=== PATIENT | female | born 1990 | race American Indian/Alaskan Native ===

== ENCOUNTER 2021-01-05 08:12 | Emergency (ER) | payer SELFPAY ==
[2021-01-05 08:41] VITALS: BP 96/50
--- NOTE | 2021-01-05 13:50 | Emergency Department Report ---
ED Extremity Problem HPI - General Chief complaint: Extremity Injury, Lower Stated complaint: RT LEG SHARP PAIN PIN NEEDLES Time Seen by Provider: 01/05/21 13:46 Source: patient Mode of arrival: Ambulatory Limitations: No Limitations - History of Present Illness Initial comments: 30-year-old female presents to the ER today with complaints of pain to her right calf. Onset on and off for 2 months but in the past 1 week its been more frequent. She describes it as a sharp shooting pain. She does a lot of walking at work but she denies any particular injury. She states that she did travel to [place] about a month ago, but she was having the pain prior to that. She reports no bruising or erythema. She denies history of PE or DVT or any other risk factors for PE or DVT. She reports no chest pain or shortness of breath. She states that she has not taken anything for pain. MD Complaint: extremity pain -: month(s) - Related Data Previous Rx's Medication Instructions Recorded Last Taken Type Ibuprofen [Motrin] 600 mg PO Q8H PRN #30 tablet 01/05/21 Unknown Rx Allergies Allergy/AdvReac Type Severity Reaction Status Date / Time No Known Allergies Allergy Unverified 01/05/21 08:36 ED Review of Systems ROS: Stated complaint: RT LEG SHARP PAIN PIN NEEDLES Other details as noted in HPI Comment: All other systems reviewed and negative Constitutional: denies: chills, fever Eyes: denies: eye pain, eye discharge, vision change ENT: denies: ear pain, throat pain Respiratory: denies: cough, shortness of breath, SOB with exertion, SOB at rest, wheezing Cardiovascular: denies: chest pain, palpitations, edema, syncope, paroxysmal nocturnal dyspnea Gastrointestinal: denies: abdominal pain, nausea, vomiting, constipation, hematemesis Musculoskeletal: arthralgia, myalgia. denies: back pain Skin: denies: rash, lesions, change in color, change in hair/nails, pruritus Neurological: denies: headache, weakness, numbness, paresthesias, confusion, abnormal gait, vertigo Psychiatric: denies: anxiety, depression, auditory hallucinations, visual hallucinations, homicidal thoughts, suicidal thoughts Hematological/Lymphatic: denies: easy bleeding, easy bruising, swollen glands ED Past Medical Hx - Past Medical History Previous Medical History?: No - Surgical History Past Surgical History?: No - Medications Home Medications: Home Medications Medication Instructions Recorded Confirmed Last Taken Type Ibuprofen [Motrin] 600 mg PO Q8H PRN #30 tablet 01/05/21 Unknown Rx ED Physical Exam - General Limitations: No Limitations General appearance: alert, in no apparent distress - Head Head exam: Present: atraumatic, normocephalic, normal inspection - Eye Eye exam: Present: normal appearance, PERRL, EOMI Pupils: Present: normal accommodation - Neck Neck exam: Present: normal inspection, full ROM. Absent: meningismus - Respiratory Respiratory exam: Present: normal lung sounds bilaterally. Absent: respiratory distress, wheezes, rales, rhonchi - Cardiovascular Cardiovascular Exam: Present: regular rate, normal rhythm, normal heart sounds - Neurological Exam Neurological exam: Present: alert, oriented X3, CN II-XII intact, normal gait - Psychiatric Psychiatric exam: Present: normal affect, normal mood - Skin Skin exam: Present: intact ED Course Vital Signs 01/05/21 01/05/21 08:40 08:41 Temperature 98.6 F Pulse Rate 90 Respiratory 19 Rate Blood Pressure 96/50 O2 Sat by Pulse 100 Oximetry ED Medical Decision Making - Medical Decision Making Patient was seen and evaluated together with Dr. Christy Royal. At this time there is a very low suspicion for DVT as this has been going on for a few months, and physical exam does not suggest cellulitis, compartment syndrome, acute arterial occlusion, or any other emergent condition warranting any additional testing at this time. Informed patient that her pain is probably more likely related to musculoskeletal pain. We recommended prescription for NSAIDs, as she has not been taking anything for pain, and follow-up with her primary care doctor. Patient vital signs were stable. She was not toxic or ill-appearing or in any significant distress. She was neurologically intact, ambulatory in the ER with a normal gait. Patient was stable at this time for discharge. Critical care attestation.: If time is entered above; I have spent that time in minutes in the direct care of this critically ill patient, excluding procedure time. ED Disposition Clinical Impression: Right calf pain Disposition: HOME / SELF CARE / HOMELESS Is pt being admited?: No Does the pt Need Aspirin: No Condition: Stable Instructions: Pain Without a Known Cause Additional Instructions: I recommend taking the ibuprofen as prescribed. I recommend follow up with PCP, return to ED if worse. Prescriptions: Ibuprofen [Motrin] 600 mg PO Q8H PRN #30 tablet PRN Reason: Pain Referrals: NASIR UGARTE MD [Staff Physician] - 3-5 Days Time of Disposition: 13:50
== END 2021-01-05 14:15 | disposition home or self-care (01) ==
LOC: ED 08:12
DX: M79.661 Pain in right lower leg (principal); Z79.899 Other long term (current) drug therapy
CPT/HCPCS: 99281